=== PATIENT | female | born 1995 | race Caucasian/White ===

== ENCOUNTER 2018-04-04 20:55 | Observation (INO) ==
[2018-04-04] MEDS ORDERED: Ibuprofen 800 MG TABLET PO ONE (21:15)
[2018-04-04 21:29] LABS: Bilirubin,Urine Negative (Negative); Blood,Urine Small (Negative); Glucose,Urine (UA) Normal (Normal); Ketones,Urine Negative (Negative); Leukocyte Esterase,Urine Large (Negative); Nitrite,Urine Positive (Negative); Protein,Urine 30 mg/dL (Neg-Trace); Specific Gravity,Urine 1.022 (1.010-1.025); Urobilinogen,Urine >=8.0 mg/dL (Normal)
[2018-04-04 21:32] LABS: Bacteria,Urine Many per hpf (None-Few); Hyaline Casts,Urine Few per lpf (None-Few); Squamous Epithelial Cell,Urine Many per lpf (None-Few); WBC,Urine TNTC per hpf (0-3)
[2018-04-04 21:34] LABS: Clarity,Urine Hazy (Clear); Color,Urine Yellow (Yellow)
--- NOTE | 2018-04-04 22:55 | Emergency Department Note ---
Disposition Clinical Impression: Pyelonephritis Disposition: Admitted As Inpatient Referrals: NONE,PCP [Primary Care Provider] - Forms: ED Satisfaction Letter Time of Disposition: 01:39 Female Urogenital HPI - General Chief complaint: ED Urogenital-Female Stated complaint: possible kidney stone Time Seen by Provider: 04/04/18 22:54 Source: patient Mode of arrival: ambulatory Limitations: no limitations Nursing Notes Reviewed: Yes Vital Signs Reviewed: Yes - History of Present Illness HPI Narrative: Patient is a 22-year-old female with no past medical history. She presents today due to left-sided flank pain, dysuria, hematuria for the past 5-6 days. She also admits to nausea, subjective fevers. Denies any vomiting, diarrhea, vaginal discharge or bleeding. Denies any history of kidney stones. - Related Data Previous Rx's Medication Instructions Recorded Azithromycin [Zithromax Tri-Art] 2,000 mg PO ONCE #4 tablet 12/03/17 Allergies Allergy/AdvReac Type Severity Reaction Status Date / Time No Known Allergies Allergy Verified 03/18/18 20:04 All systems ED: reviewed and negative except as stated. Constitutional: Reports: fever Cardiovascular: Denies: chest pain, palpitations Respiratory: Denies: cough, dyspnea Gastrointestinal: Reports: abdominal pain, nausea. Denies: vomiting, diarrhea, constipation Genitourinary: Reports: dysuria, frequency, hematuria. Denies: urgency, discharge, abnormal menses Musculoskeletal: Reports: back pain Neurological: Denies: headache, weakness, numbness, paresthesias Past Medical History - Past Medical History Attestation: Yes The following information was validated with the patient. Source: patient Medical history: Reports: no medical history Surgical history: Reports: non-contributory Psychiatric history: Reports: no psych history - Social History Smoking Status: Current every day smoker Smokeless Tobacco Status: No Alcohol use: Reports: none Drug use: Reports: none Physical Exam - General Limitations: no limitations General appearance: alert, in no apparent distress - Head Head exam: atraumatic, normocephalic, normal inspection - Eye Eye exam: Present: normal appearance, PERRL, EOMI - ENT ENT exam: normal exam, normal oropharynx, mucous membranes moist - Neck Neck exam: Present: normal inspection, full ROM, trachea midline - Chest Chest inspection: Present: normal inspection, symmetric chest wall rise - Respiratory Respiratory exam: Present: normal lung sounds bilaterally - Cardiovascular Cardiovascular exam: Present: regular rate, normal rhythm, normal heart sounds - Abdominal Exam Abdominal exam: Present: soft, tenderness (Left flank pain). Absent: distention , guarding, rebound, rigidity - Extremities Exam Extremities exam: Present: normal inspection, full ROM. Absent: tenderness, pedal edema - Neurological Exam Neurological exam: Present: alert, oriented X3 - Psychiatric Psychiatric exam: Present: normal affect, normal mood - Skin Skin exam: Present: warm, dry, intact, normal color Course Course Narrative: Patient was tachycardic and febrile. Patient had left flank pain on exam. Urinalysis shows signs of UTI. CT scan was performed to assess for any stone. Negative for stone but does show left sided pyelonephritis. Started the patient on Rocephin. Ordered cultures of urine and blood. Fluids given and tylenol/motrin for fever. Concern for sepsis at this time. Patient was accepted for admission by Dr. Fregoso. Vital Signs Temperature 103.1 F H 04/04/18 21:03 Pulse Rate 126 04/04/18 21:03 Respiratory Rate 16 04/04/18 21:03 Blood Pressure 121/72 04/04/18 21:03 O2 Sat by Pulse Oximetry 97 04/04/18 21:03 Temperature 103.1 F H 04/04/18 21:03 Pulse Rate 92 04/05/18 00:55 Respiratory Rate 18 04/05/18 00:55 Blood Pressure 100/73 04/05/18 00:55 O2 Sat by Pulse Oximetry 97 04/05/18 00:55 Oxygen Delivery Oxygen Delivery Room Air Urogenital-Female - MDM Narrative Medical decision making narrative: Patient was tachycardic and febrile. Patient had left flank pain on exam. Urinalysis shows signs of UTI. CT scan was performed to assess for any stone. Negative for stone but does show left sided pyelonephritis. Started the patient on Rocephin. Ordered cultures of urine and blood. Fluids given and tylenol/motrin for fever. Concern for sepsis at this time. Patient was accepted for admission by Dr. Fregoso. - Medical Records Medical records reviewed: Yes I reviewed the patient's medical records. - Lab Data Lab results reviewed: Yes I reviewed the patient's lab results. Result diagrams: 04/04/18 23:33 04/04/18 23:33 Lab Results 04/04/18 04/04/18 04/04/18 Range/Units 21:17 21:17 23:33 WBC 11.5 H (4.3-11.1) K/mcL RBC 4.21 (3.82-4.97) M/mcL Hgb 12.2 (11.5-15.4) g/dL Hct 36.0 (35.3-44.9) % MCV 85.5 (83.0-100.0) fL MCH 29.0 (28.0-33.3) pg MCHC 33.9 (31.6-35.5) g/dL RDW 12.4 (11.5-14.5) % Plt Count 263 (140-400) K/mcL MPV 8.9 L (9.4-12.4) fL Immature Gran % 0.4 (0-4) % Seg Neutrophils % 77.0 % Lymphocytes % 12.0 % Monocytes % 9.9 % Eosinophils % 0.5 % Basophils % 0.2 % Neutrophils # 8.9 (1.6-8.9) K/mcL Lymphocytes # 1.4 (0.6-4.6) K/mcL Monocytes # 1.1 (0.0-1.3) K/mcL Eosinophils # 0.1 (0.0-0.6) K/mcL Basophils # 0.0 (0.0-0.2) K/mcL Sodium (136-145) mEq/L Potassium (3.5-5.1) mEq/L Chloride (98-107) mEq/L Carbon Dioxide (23-29) mEq/L BUN (6-20) mg/dL Creatinine (0.60-1.20) mg/dL Est GFR ( Amer) (> 60) Est GFR (Non-Af Amer) (> 60) BUN/Creatinine Ratio (6-26) Glucose (70-105) mg/dL Calculated Osmolality (280-300) Calcium (8.6-10.3) mg/dL Urine Color Yellow (Yellow) Urine Clarity Hazy A (Clear) Urine pH 7.0 (5.0-8.0) pH Units Ur Specific [place] 1.022 (1.010-1.025) Urine Protein 30 H (Neg-Trace) mg/dL Urine Glucose (UA) Normal (Normal) mg/dL Urine Ketones Negative (Negative) mg/dL Urine Blood Small H (Negative) Urine Nitrite Positive A (Negative) Urine Bilirubin Negative (Negative) Urine Urobilinogen >=8.0 H (Normal) mg/dL Ur Leukocyte Esterase Large H (Negative) Urine Microscopic RBC 5-15 H (0-3) per hpf Urine Microscopic WBC TNTC H (0-3) per hpf Ur Squamous Epith Cells Many H (None-Few) per lpf Urine Bacteria Many H (None-Few) per hpf Hyaline Casts Few (None-Few) per lpf Ur Culture Indicated? NO. A (NO) Urine Test Negative (Negative) 04/04/18 Range/Units 23:33 WBC (4.3-11.1) K/mcL RBC (3.82-4.97) M/mcL Hgb (11.5-15.4) g/dL Hct (35.3-44.9) % MCV (83.0-100.0) fL MCH (28.0-33.3) pg MCHC (31.6-35.5) g/dL RDW (11.5-14.5) % Plt Count (140-400) K/mcL MPV (9.4-12.4) fL Immature Gran % (0-4) % Seg Neutrophils % % Lymphocytes % % Monocytes % % Eosinophils % % Basophils % % Neutrophils # (1.6-8.9) K/mcL Lymphocytes # (0.6-4.6) K/mcL Monocytes # (0.0-1.3) K/mcL Eosinophils # (0.0-0.6) K/mcL Basophils # (0.0-0.2) K/mcL Sodium 133 L (136-145) mEq/L Potassium 3.5 (3.5-5.1) mEq/L Chloride 102 (98-107) mEq/L Carbon Dioxide 22 L (23-29) mEq/L BUN 10 (6-20) mg/dL Creatinine 0.76 (0.60-1.20) mg/dL Est GFR ( Amer) > 60 (> 60) Est GFR (Non-Af Amer) > 60 (> 60) BUN/Creatinine Ratio 13 (6-26) Glucose 118 H (70-105) mg/dL Calculated Osmolality 276 L (280-300) Calcium 9.1 (8.6-10.3) mg/dL Urine Color (Yellow) Urine Clarity (Clear) Urine pH (5.0-8.0) pH Units Ur Specific [place] (1.010-1.025) Urine Protein (Neg-Trace) mg/dL Urine Glucose (UA) (Normal) mg/dL Urine Ketones (Negative) mg/dL Urine Blood (Negative) Urine Nitrite (Negative) Urine Bilirubin (Negative) Urine Urobilinogen (Normal) mg/dL Ur Leukocyte Esterase (Negative) Urine Microscopic RBC (0-3) per hpf Urine Microscopic WBC (0-3) per hpf Ur Squamous Epith Cells (None-Few) per lpf Urine Bacteria (None-Few) per hpf Hyaline Casts (None-Few) per lpf Ur Culture Indicated? (NO) Urine Test (Negative) - Radiology Data Radiology results reviewed: Yes I reviewed the patient's radiology results. Abdomen/Pelvis CT 04/04/18 23:10 IMPRESSION: 1. No evidence of obstructive uropathy. Evaluation for pyelonephritis is limited by the lack of intravenous contrast. Mild infiltration of the perinephric fat particularly lateral to the left kidney. Infiltration of the pericystic fat. The findings are concerning for UTI and left-sided pyelonephritis. 2. No other acute findings within the abdomen or pelvis. The appendix is unremarkable. 3. Free fluid in the pelvis, likely physiologic. D/ / Milton Iverson MD / Milton Iverson MD Interpreting Provider: Milton Iverson MD S.B.A.R. - S.B.A.R. Situation: Demographics, MOA Background: Presenting Complaint, Relevant PMH, Meds, & Allergies Assessment: Vital Signs, Course and respsone to treatment, Exam Concerns, Patient/Family Expectation, Pertinant Lab Results, Outstanding Labs Recommendation: Barrier(s) to disposition, Recommendation based on pending studies, treatments, or consults S.B.A.R. Report Given to: Dr. Fregoso
[2018-04-04] MEDS ORDERED: cefTRIAXone 2,000 MG in Water for inj. (sterile) 20 ML 20 ML IVP ONE (23:10)
[2018-04-04] MEDS ORDERED: 0.9 % Sodium Chloride 1,000 ML IVC ONE (23:25)
[2018-04-04 23:43] LABS: Basophils % 0.2 %; Eosinophils # 0.1 K/mcL (0.0-0.6); Eosinophils % 0.5 %; Hemoglobin 12.2 g/dL (11.5-15.4); Immature Granulocytes % 0.4 % (0-4); Lymphocytes # 1.4 K/mcL (0.6-4.6); Mean Corpuscular HGB Conc 33.9 g/dL (31.6-35.5); Mean Corpuscular Volume 85.5 fL (83.0-100.0); Mean Platelet Volume 8.9 fL (9.4-12.4); Monocytes # 1.1 K/mcL (0.0-1.3); Monocytes % 9.9 %; Neutrophils # 8.9 K/mcL (1.6-8.9); Platelet Count 263 K/mcL (140-400); Red Blood Count 4.21 M/mcL (3.82-4.97); Red Cell Distribution Width 12.4 % (11.5-14.5)
[2018-04-05 00:02] LABS: BUN/Creatinine Ratio 13 (6-26); Blood Urea Nitrogen 10 mg/dL (6-20); Calcium 9.1 mg/dL (8.6-10.3); Carbon Dioxide 22 mEq/L (23-29); Chloride 102 mEq/L (98-107); Glucose 118 mg/dL (70-105); Osmolality,Calculated 276 (280-300); Potassium 3.5 mEq/L (3.5-5.1); Sodium 133 mEq/L (136-145); eGFR For African Americans > 60 (> 60); eGFR For Non-African Americans > 60 (> 60)
--- NOTE | 2018-04-05 00:20 | Emergency Department Note ---
Disposition Clinical Impression: Pyelonephritis Disposition: Admitted As Inpatient Referrals: NONE,PCP [Primary Care Provider] - Forms: ED Satisfaction Letter General Adult HPI - General Chief complaint: ED Urogenital-Female Stated complaint: possible kidney stone Time Seen by Provider: 04/04/18 22:54 Source: patient Mode of arrival: ambulatory Limitations: no limitations - History of Present Illness Pain Scale: 8 - Related Data Previous Rx's Medication Instructions Recorded Azithromycin [Zithromax Tri-Art] 2,000 mg PO ONCE #4 tablet 12/03/17 Allergies Allergy/AdvReac Type Severity Reaction Status Date / Time No Known Allergies Allergy Verified 03/18/18 20:04 Past Medical History - Past Medical History Medical history: Reports: no medical history Surgical history: Reports: non-contributory Psychiatric history: Reports: no psych history - Social History Smoking Status: Current every day smoker Smokeless Tobacco Status: No Alcohol use: Reports: none Drug use: Reports: none Physical Exam - General Limitations: no limitations General appearance: alert, in no apparent distress Course - Reevaluation(s) Reevaluation #1: Attestation note I examined this patient and my medical decision-making was reviewed with the emergency medicine resident. I agree with the documented findings, disposition and treatment plan as described except to the extent set forth below. Patient seen with emergency medicine resident Dr. Jitendra Pino, Please see a copy of his note for details of the H&P, ED evaluation, management and disposition. I have independently evaluated the patient and confirmed appropriate portions of the history and physical exam. Briefly: 22-year-old female with dysuria fever flank pain urinalysis shows too numerous to count WBC she developed 103+ got Tylenol IV antibiotics IV fluid abdominal pelvic CT shows no kidney stone but suggestive for pyelonephritis. Patient will be admitted. Admission disposition pending. Time: 00:19 Vital Signs Temperature 103.1 F H 04/04/18 21:03 Pulse Rate 126 04/04/18 21:03 Respiratory Rate 16 04/04/18 21:03 Blood Pressure 121/72 04/04/18 21:03 O2 Sat by Pulse Oximetry 97 04/04/18 21:03 Temperature 103.1 F H 04/04/18 21:03 Pulse Rate 126 04/04/18 21:03 Respiratory Rate 16 04/04/18 21:03 Blood Pressure 121/72 04/04/18 21:03 O2 Sat by Pulse Oximetry 97 04/04/18 21:03 Oxygen Delivery Oxygen Delivery Room Air Medical Decision Making - Lab Data Result diagrams: 04/04/18 23:33 04/04/18 23:33 Lab Results 04/04/18 04/04/18 04/04/18 Range/Units 21:17 21:17 23:33 WBC 11.5 H (4.3-11.1) K/mcL RBC 4.21 (3.82-4.97) M/mcL Hgb 12.2 (11.5-15.4) g/dL Hct 36.0 (35.3-44.9) % MCV 85.5 (83.0-100.0) fL MCH 29.0 (28.0-33.3) pg MCHC 33.9 (31.6-35.5) g/dL RDW 12.4 (11.5-14.5) % Plt Count 263 (140-400) K/mcL MPV 8.9 L (9.4-12.4) fL Immature Gran % 0.4 (0-4) % Seg Neutrophils % 77.0 % Lymphocytes % 12.0 % Monocytes % 9.9 % Eosinophils % 0.5 % Basophils % 0.2 % Neutrophils # 8.9 (1.6-8.9) K/mcL Lymphocytes # 1.4 (0.6-4.6) K/mcL Monocytes # 1.1 (0.0-1.3) K/mcL Eosinophils # 0.1 (0.0-0.6) K/mcL Basophils # 0.0 (0.0-0.2) K/mcL Sodium (136-145) mEq/L Potassium (3.5-5.1) mEq/L Chloride (98-107) mEq/L Carbon Dioxide (23-29) mEq/L BUN (6-20) mg/dL Creatinine (0.60-1.20) mg/dL Est GFR ( Amer) (> 60) Est GFR (Non-Af Amer) (> 60) BUN/Creatinine Ratio (6-26) Glucose (70-105) mg/dL Calculated Osmolality (280-300) Calcium (8.6-10.3) mg/dL Urine Color Yellow (Yellow) Urine Clarity Hazy A (Clear) Urine pH 7.0 (5.0-8.0) pH Units Ur Specific [place] 1.022 (1.010-1.025) Urine Protein 30 H (Neg-Trace) mg/dL Urine Glucose (UA) Normal (Normal) mg/dL Urine Ketones Negative (Negative) mg/dL Urine Blood Small H (Negative) Urine Nitrite Positive A (Negative) Urine Bilirubin Negative (Negative) Urine Urobilinogen >=8.0 H (Normal) mg/dL Ur Leukocyte Esterase Large H (Negative) Urine Microscopic RBC 5-15 H (0-3) per hpf Urine Microscopic WBC TNTC H (0-3) per hpf Ur Squamous Epith Cells Many H (None-Few) per lpf Urine Bacteria Many H (None-Few) per hpf Hyaline Casts Few (None-Few) per lpf Ur Culture Indicated? NO. A (NO) Urine Test Negative (Negative) 04/04/18 Range/Units 23:33 WBC (4.3-11.1) K/mcL RBC (3.82-4.97) M/mcL Hgb (11.5-15.4) g/dL Hct (35.3-44.9) % MCV (83.0-100.0) fL MCH (28.0-33.3) pg MCHC (31.6-35.5) g/dL RDW (11.5-14.5) % Plt Count (140-400) K/mcL MPV (9.4-12.4) fL Immature Gran % (0-4) % Seg Neutrophils % % Lymphocytes % % Monocytes % % Eosinophils % % Basophils % % Neutrophils # (1.6-8.9) K/mcL Lymphocytes # (0.6-4.6) K/mcL Monocytes # (0.0-1.3) K/mcL Eosinophils # (0.0-0.6) K/mcL Basophils # (0.0-0.2) K/mcL Sodium 133 L (136-145) mEq/L Potassium 3.5 (3.5-5.1) mEq/L Chloride 102 (98-107) mEq/L Carbon Dioxide 22 L (23-29) mEq/L BUN 10 (6-20) mg/dL Creatinine 0.76 (0.60-1.20) mg/dL Est GFR ( Amer) > 60 (> 60) Est GFR (Non-Af Amer) > 60 (> 60) BUN/Creatinine Ratio 13 (6-26) Glucose 118 H (70-105) mg/dL Calculated Osmolality 276 L (280-300) Calcium 9.1 (8.6-10.3) mg/dL Urine Color (Yellow) Urine Clarity (Clear) Urine pH (5.0-8.0) pH Units Ur Specific [place] (1.010-1.025) Urine Protein (Neg-Trace) mg/dL Urine Glucose (UA) (Normal) mg/dL Urine Ketones (Negative) mg/dL Urine Blood (Negative) Urine Nitrite (Negative) Urine Bilirubin (Negative) Urine Urobilinogen (Normal) mg/dL Ur Leukocyte Esterase (Negative) Urine Microscopic RBC (0-3) per hpf Urine Microscopic WBC (0-3) per hpf Ur Squamous Epith Cells (None-Few) per lpf Urine Bacteria (None-Few) per hpf Hyaline Casts (None-Few) per lpf Ur Culture Indicated? (NO) Urine Test (Negative)
[2018-04-05] MEDS ORDERED: Naloxone 0.4 MG/ML INJ IVP PRN (01:12)
[2018-04-05] MEDS ORDERED: 0.9 % Sodium Chloride 1,000 ML IVC SCH (01:15)
[2018-04-05 01:38] LABS: Basophils % 0.2 %; Eosinophils # 0.1 K/mcL (0.0-0.6); Eosinophils % 0.5 %; Hematocrit 37.3 % (35.3-44.9); Hemoglobin 12.6 g/dL (11.5-15.4); Immature Granulocytes % 0.5 % (0-4); Lymphocytes # 1.3 K/mcL (0.6-4.6); Lymphocytes % 12.4 %; Mean Corpuscular HGB Conc 33.8 g/dL (31.6-35.5); Mean Corpuscular Hemoglobin 29.8 pg (28.0-33.3); Mean Corpuscular Volume 88.2 fL (83.0-100.0); Mean Platelet Volume 8.8 fL (9.4-12.4); Monocytes # 0.9 K/mcL (0.0-1.3); Monocytes % 8.8 %; Neutrophils # 8.3 K/mcL (1.6-8.9); Platelet Count 242 K/mcL (140-400); Red Blood Count 4.23 M/mcL (3.82-4.97); Red Cell Distribution Width 12.3 % (11.5-14.5); Segmented Neutrophils % 77.6 %
[2018-04-05 01:55] LABS: BUN/Creatinine Ratio 13 (6-26); Blood Urea Nitrogen 10 mg/dL (6-20); Calcium 8.4 mg/dL (8.6-10.3); Carbon Dioxide 22 mEq/L (23-29); Chloride 104 mEq/L (98-107); Glucose 121 mg/dL (70-105); Osmolality,Calculated 280 (280-300); Potassium 3.3 mEq/L (3.5-5.1); Sodium 135 mEq/L (136-145); eGFR For African Americans > 60 (> 60); eGFR For Non-African Americans > 60 (> 60)
--- NOTE | 2018-04-05 02:39 | Internal Med History&Physical ---
Date of Encounter: 04/05/18 Time of Encounter: 02:36 Internal Medicine - H&P: HPI Chief complaint: Hematuria, dysuria. Admitted From: Home Plans for Post Hospital Care: Home History of present illness: Ms. Miramontes is a 22 year old female with no significant medical history presented with 5 days history of dysuria, suprapubic pain, blood in the urine. She reports being in her usual state of health till March 31 when she developed antonio red blood in her urine, associated with pressure-like sensation in the suprapubic region and dysuria. She reports associated fever or chills in the past 24 hours prior to presentation. She also reports left flank pain which also subsided prior to presentation. She had stayed at home and been drinking cranberry juice for her symptoms. She denies nausea or vomiting, she reports poor appetite, she denies diarrhea, or change in bowel habits. No vaginal discharge or bleeding per vagina. She denies chest or respiratory symptoms. She denies illicit drug use. She smokes half a pack of cigarettes daily In the ER, she was febrile with temperature 103, tachycardia with heart rate 126 , urinalysis showed multiple squamous cells as well as leukocyte esterase and blood as well as nitrites, abdomen and pelvis CAT scan shows left-sided pyelonephritis The patient will be admitted inpatient for management of sepsis secondary to pyelonephritis, she will require at least 2 midnights Patient is full code Past Med Surg Social Fam HX - Past Medical History Medical history: no medical history Psychiatric history: no psych history - Past Surgical History Surgical History: non-contributory Additional surgical history: tonsils and adnoids - Social History Smoking Status: Current every day smoker Smokeless Tobacco Status: No Alcohol use: none Drug use: none - Family History Mother Family Member Ethnicity: Non- Living Status: Still Living Hx Family Cancer: Yes (cervical cancer) Internal Medicine - H&P: Meds No Known Home Drugs 04/05/18 [History] 3 Allergy/AdvReac Type Severity Reaction Status Date / Time No Known Allergies Allergy Verified 03/18/18 20:04 All Systems PM: A 10-system review of systems was performed and is negative for pertinent findings except as documented above in the HPI. - Constitutional Constitutional: anorexia, chills, fever(s) - EENT Eyes: no change in vision, no discharge, no pain, no photophobia Ears: no ear discharge, no ear pain, no tinnitus Nose, mouth and throat: no dysphagia, no nasal discharge, no neck pain, no sore throat - Cardiovascular Cardiovascular ROS IM: no chest pain, no diaphoresis, no dyspnea, no lightheadedness, no palpitations, no syncope - Respiratory Respiratory: no cough, no dyspnea, no wheezing, no excessive phlegm production - Gastrointestinal Gastrointestinal: no abdominal pain, no diarrhea, no hematemesis, no hematochezia, no melena, no nausea, no vomiting - Genitourinary Genitourinary: as per HPI - Musculoskeletal Musculoskeletal ROS IM: as per HPI - Integumentary Integumentary IM: as per HPI - Neurological Neurological ROS: as per HPI - Hematologic/Lymphatic Hematologic/Lymphatic: no easy bruising - Constitutional Vitals: Temp Pulse Resp BP Pulse Ox 97.6 F 71 16 96/60 98 04/05/18 02:25 04/05/18 02:25 04/05/18 02:25 04/05/18 02:25 04/05/18 02:25 General appearance: Present: A&O X 3, pleasant, no acute distress - Head Head exam: Present: atraumatic, normocephalic - Eye Eye exam: Present: PERRL, conjuntiva pink, sclera anicteric Pupils: Present: PERRL - Neck Neck exam general surgery: Present: supple, trachea midline. Absent: lymphadenopathy - Respiratory Respiratory exam: Present: CTAB. Absent: accessory muscle use, rales, rhonchi, wheezes - Cardiovascular Cardiovascular exam: Present: RRR, +S1, +S2. Absent: diastolic murmur, gallop, rubs, systolic murmur - GI/Abdominal GI/Abdominal exam: Present: tenderness (Suprapubic tenderness) - Extremities Exam Extremities exam: Present: warm, radial pulses palpable and symmetrical. Absent : calf tenderness, cyanotic, pedal edema - Back Exam Back exam: Present: CVA tenderness (L). Absent: CVA tenderness (R) - Neurological Exam Neurological exam: Present: alert, CN II-XII intact, oriented X3, no focal deficits. Absent: pronater drift, facial droop, speech deficit - Skin Skin exam: Present: dry, intact Internal Med - H&P Results - Labs CBC & Chem 7: 04/05/18 01:23 04/05/18 01:23 - Assessment and plan (1) Sepsis Current Visit: Yes Status: Acute Assessment and plan: Patient may sepsis criteria with fever 103, tachycardia 126, source of sepsis is urinary tract infection and pyelonephritis. Lactate is within normal limit Pressure is acceptable Continue IV fluid hydration Urine and blood culture has been ordered Continue ceftriaxone 2 g daily Tylenol when necessary for fever Pain control Qualifiers: Sepsis type: sepsis due to unspecified organism Qualified Code(s): A41.9 - Sepsis, unspecified organism (2) Pyelonephritis Current Visit: Yes Status: Acute Assessment and plan: Management as in sepsis - Time Spent With Patient Total time spent is greater than 50% in coordination of care (as documented) at patient's floor/unit and/or counseling patient:
[2018-04-05] MEDS: traMADol 50 MG TABLET PO PRN ×2 (12:06→20:36)
[2018-04-05] MEDS: Acetaminophen 325 MG TABLET PO PRN ×2 (12:06→20:49)
--- NOTE | 2018-04-05 12:49 | Event Note ---
Date of Encounter: 04/05/18 Time of Encounter: 12:48 Patient seen and examined at the bedside today. She has been admitted for acute pyelonephritis clinical. She continues to have fevers and chills. She is on IV Rocephin and cultures are pending. I will continue IV fluids for today and monitor closely. Rest of the assessment and plan is the same as in H &P
[2018-04-05] MEDS: 0.9 % Sodium Chloride 1,000 ML IVC SCH ×2 (15:31→23:50)
[2018-04-05] MEDS ORDERED: cefTRIAXone 2,000 MG in Water for inj. (sterile) 20 ML 20 ML IVP SCH (18:00)
[2018-04-06] MEDS: *HR* Enoxaparin 40 MG/0.4 ML SYRINGE SQ SCH (05:23)
[2018-04-06 07:58] LABS: Basophils % 0.2 %; Eosinophils # 0.2 K/mcL (0.0-0.6); Eosinophils % 1.3 %; Hematocrit 34.6 % (35.3-44.9); Hemoglobin 11.6 g/dL (11.5-15.4); Immature Granulocytes % 0.5 % (0-4); Lymphocytes # 1.3 K/mcL (0.6-4.6); Lymphocytes % 10.6 %; Mean Corpuscular HGB Conc 33.5 g/dL (31.6-35.5); Mean Corpuscular Hemoglobin 29.7 pg (28.0-33.3); Mean Corpuscular Volume 88.7 fL (83.0-100.0); Mean Platelet Volume 8.8 fL (9.4-12.4); Monocytes # 0.9 K/mcL (0.0-1.3); Monocytes % 7.1 %; Neutrophils # 9.8 K/mcL (1.6-8.9); Platelet Count 260 K/mcL (140-400); Red Cell Distribution Width 12.7 % (11.5-14.5); Segmented Neutrophils % 80.3 %
[2018-04-06] MEDS: 0.9 % Sodium Chloride 1,000 ML IVC SCH ×2 (08:22→19:08)
[2018-04-06 08:44] LABS: Alanine Aminotransferase 66 Units/L (7-52); Albumin/Globulin Ratio 1.1 (1.1-2.2); Alkaline Phosphatase 102 Units/L (34-104); Aspartate Amino Transferase 32 Units/L (13-39); BUN/Creatinine Ratio 6 (6-26); Bilirubin,Total 0.6 mg/dL (0.3-1.0); Blood Urea Nitrogen 3 mg/dL (6-20); Calcium 8.3 mg/dL (8.6-10.3); Carbon Dioxide 25 mEq/L (23-29); Chloride 104 mEq/L (98-107); Globulin 2.8 g/dL (2.4-3.5); Glucose 101 mg/dL (70-105); Osmolality,Calculated 277 (280-300); Potassium 3.8 mEq/L (3.5-5.1); Sodium 135 mEq/L (136-145); Total Protein 5.8 g/dL (6.4-8.9); eGFR For African Americans > 60 (> 60); eGFR For Non-African Americans > 60 (> 60)
[2018-04-06] MEDS: Acetaminophen 325 MG TABLET PO PRN ×2 (08:52→17:36)
[2018-04-06] MEDS: Ondansetron 4 MG/2 ML VIAL IVP PRN ×2 (10:18→18:20)
[2018-04-06] MEDS: Piperacillin/Tazobactam 3.375 GM in 0.9 % Sodium Chloride Mini Bag 100 ML IVPB SCH ×2 (10:18→17:07)
--- NOTE | 2018-04-06 11:14 | Internal Med Progress Note ---
Date of Encounter: 04/06/18 Time of Encounter: 11:12 - Assessment and plan (1) Pyelonephritis Current Visit: Yes Status: Acute Assessment and plan: Patient has a slightly increased white count from yesterday despite getting fluid resuscitation. I will continue IV hydration for now and switch antibiotics from Rocephin to Zosyn. Patient is growing gram-negative rods in the urine culture at this point however speciation is not back. Her blood cultures are also pending at this point. Vital signs remain stable except for fever which is more or less expected. Continue antibiotics and monitor closely. Continue IV fluids as well (2) Sepsis Current Visit: Yes Status: Acute Assessment and plan: Patient may sepsis criteria with fever 103, tachycardia 126, source of sepsis is urinary tract infection and pyelonephritis. Lactate is within normal limit Pressure is acceptable Continue IV fluid hydration Urine and blood culture has been ordered Continue ceftriaxone 2 g daily Tylenol when necessary for fever Pain control 04/06-see plan above Qualifiers: Sepsis type: sepsis due to unspecified organism Qualified Code(s): A41.9 - Sepsis, unspecified organism - Time Spent With Patient Total time spent is greater than 50% in coordination of care (as documented) at patient's floor/unit and/or counseling patient: Greater than 35 minutes (The discussed in detail with the patient, family at the bedside, nursing staff in detail.) - Subjective Interval history: Patient continues to have fevers and also complains of off and on abdominal pain. She also has nausea and has thrown up at least once since this morning. - Constitutional Vitals: Temp Pulse Resp BP Pulse Ox 98.5 F 79 16 91/56 99 04/06/18 10:57 04/06/18 10:57 04/06/18 10:57 04/06/18 10:57 04/06/18 10:57 General appearance: Present: A&O X 3, pleasant, no acute distress Exam: GENERAL: Alert, moderate distress, cooperative EYES: PERRLA, EOMI EARS: External ears normal, canals clear OROPHARYNX: Lips, mucosa, and tongue normal. Teeth and gums normal. Oropharynx normal. NECK: No jugulovenous distention, No carotid bruits, Carotid pulse normal contour, Supple LUNGS: Lungs clear to auscultation, Good diaphragmatic excursion CARDIAC: Tachycardic; no rubs, murmurs, or gallops ABDOMEN: Abdomen soft, non-tender, BS normal, No masses or organomegaly PULSES: 2+ radial, 2+ carotid Rest of the exam is non contributory Internal Medicine: Result - Labs CBC & Chem 7: 04/06/18 07:13 04/06/18 07:13 Labs: Short CBC 04/06/18 Range/Units 07:13 WBC 12.2 H (4.3-11.1) K/mcL Hgb 11.6 (11.5-15.4) g/dL Hct 34.6 L (35.3-44.9) % Plt Count 260 (140-400) K/mcL Neutrophils # 9.8 H (1.6-8.9) K/mcL BMP 04/06/18 07:13 Sodium 135 L Potassium 3.8 Chloride 104 Carbon Dioxide 25 BUN 3 L Creatinine 0.54 L Glucose 101 Calcium 8.3 L Liver Function 04/06/18 Range/Units 07:13 Total Bilirubin 0.6 (0.3-1.0) mg/dL AST 32 (13-39) Units/L ALT 66 H (7-52) Units/L Alkaline Phosphatase 102 (34-104) Units/L Albumin 3.0 L (3.5-5.7) g/dL Consult Discharge Plan - Plan Referrals: NONE,PCP [Primary Care Provider] -
[2018-04-07] MEDS: Piperacillin/Tazobactam 3.375 GM in 0.9 % Sodium Chloride Mini Bag 100 ML IVPB SCH ×2 (03:16→10:54)
[2018-04-07] MEDS: 0.9 % Sodium Chloride 1,000 ML IVC SCH ×3 (03:17→11:05)
[2018-04-07] MEDS: *HR* Enoxaparin 40 MG/0.4 ML SYRINGE SQ SCH (05:49)
[2018-04-07 09:26] LABS: Basophils % 0.5 %; Eosinophils # 0.2 K/mcL (0.0-0.6); Eosinophils % 2.8 %; Hematocrit 34.1 % (35.3-44.9); Hemoglobin 11.4 g/dL (11.5-15.4); Immature Granulocytes % 0.4 % (0-4); Lymphocytes # 1.5 K/mcL (0.6-4.6); Lymphocytes % 18.8 %; Mean Corpuscular HGB Conc 33.4 g/dL (31.6-35.5); Mean Corpuscular Hemoglobin 29.6 pg (28.0-33.3); Mean Corpuscular Volume 88.6 fL (83.0-100.0); Mean Platelet Volume 8.8 fL (9.4-12.4); Monocytes # 0.5 K/mcL (0.0-1.3); Monocytes % 6.1 %; Neutrophils # 5.7 K/mcL (1.6-8.9); Platelet Count 248 K/mcL (140-400); Red Blood Count 3.85 M/mcL (3.82-4.97); Red Cell Distribution Width 12.6 % (11.5-14.5); Segmented Neutrophils % 71.4 %
[2018-04-07 09:43] LABS: Alanine Aminotransferase 45 Units/L (7-52); Albumin 2.8 g/dL (3.5-5.7); Alkaline Phosphatase 95 Units/L (34-104); Aspartate Amino Transferase 17 Units/L (13-39); BUN/Creatinine Ratio 6 (6-26); Bilirubin,Total 0.5 mg/dL (0.3-1.0); Blood Urea Nitrogen 4 mg/dL (6-20); Calcium 8.3 mg/dL (8.6-10.3); Carbon Dioxide 25 mEq/L (23-29); Chloride 108 mEq/L (98-107); Globulin 2.7 g/dL (2.4-3.5); Glucose 116 mg/dL (70-105); Osmolality,Calculated 284 (280-300); Potassium 3.7 mEq/L (3.5-5.1); Sodium 138 mEq/L (136-145); Total Protein 5.5 g/dL (6.4-8.9); eGFR For African Americans > 60 (> 60); eGFR For Non-African Americans > 60 (> 60)
[2018-04-07 14:13] VITALS: BP 100/63
--- NOTE | 2018-04-07 15:18 | Discharge Summary ---
<Logan hCapman Yhoana - Last Filed: 04/07/18 18:35> - NOTES TO OUTPATIENT PROVIDER Notes to Outpatient Provider: Patient was admitted to [facility] on 04/05 for Sepsis secondary to Pyelonephritis and UTI. She was treated IVF as well as with Rocephin then switched to Zosyn. Her labs, symptoms, and clinical disposition improved significantly and quickly and was considered stable for discharge with 10 days of oral Omnicef on 04/07. Date of Encounter: 04/07/18 Time of Encounter: 15:14 - Discharge Diagnosis (1) Pyelonephritis Priority: Primary Status: Acute Assessment and Plan: Patient was admitted 04/05 for sepsis secondary to pyelonephritis and UTI. She was started on IVF and IV Rocephin. Urine culture grew gram negative rods. Blood cultures pending. Her white count went down then up again so she was switched to IV Zosyn on 04/06. Labs and vitals were monitored. On 04/07 her labs, vitals, symptoms, and clinical disposition were stable for discharge on 10 days oral Omnicef. (2) Sepsis Priority: Secondary Status: Acute Assessment and Plan: Patient was admitted 04/05 for sepsis secondary to pyelonephritis and UTI. She was started on IVF and IV Rocephin. Urine culture grew gram negative rods. Blood cultures pending. Her white count went down then up again so she was switched to IV Zosyn on 04/06. Labs and vitals were monitored. On 04/07 her labs, vitals, symptoms, and clinical disposition were stable for discharge on 10 days oral Omnicef. Qualifiers: Sepsis type: Escherichia coli Qualified Code(s): A41.51 - Sepsis due to Escherichia coli [E. coli] Hospital course: Ms. Miramontes is a 22 year old female with no significant past medical history was admitted to [facility] on 04/05 for Sepsis secondary to Pyelonephritis and UTI. She was treated with IVF as well as with Rocephin then switched to Zosyn. Her labs, symptoms, and clinical disposition improved significantly and quickly and she was considered stable for discharge with 10 days of oral Omnicef on 04/07. - Time Spent with Patient Total time spent providing and/or coordinating discharge services: - Discharge Medications Prescriptions: Cefdinir [Omnicef] 300 mg PO BID #20 capsule Home Medications: Cefdinir [Omnicef] 300 mg PO BID #20 capsule 04/07/18 [Rx] Allergies/Adverse Reactions: 3 Allergy/AdvReac Type Severity Reaction Status Date / Time No Known Allergies Allergy Verified 03/18/18 20:04 Date of admission: 04/05/18 01:40 Primary care physician: PCP NONE - Constitutional Vitals: Temp Pulse Resp BP Pulse Ox 98.4 F 67 15 100/63 98 04/07/18 14:08 04/07/18 14:08 04/07/18 14:08 04/07/18 14:08 04/07/18 14:08 General appearance: Present: A&O X 3, pleasant, no acute distress Exam: Patient in no acute distress, talking and laughing with friend in room, eating food brought from home Alert and oriented x3 mucous membranes moist heart regular rate and rhythm without murmur, rub, or brennan Lungs clear to auscultation without adventitious sounds Abdomen soft and nontender, bowel sounds normal - Patient Status Disposition: Home, Self-Care Condition: Good Functional capacity at discharge: independent ambulation Overall status at discharge: patient is progressing back to baseline - Discharge Instructions Instructions: Urinary Tract Infection in Women (DC), Sepsis (DC) Follow Up With: Logan Chapman [Resident] - 04/13/18 1:15 pm Forms: Work/School Release - Diet and Activity Activity: increase activity as tolerated Diet: advance to your usual diet <Clint Falk - Last Filed: 04/07/18 22:08> Date of Encounter: 04/07/18 - Discharge Diagnosis (1) Pyelonephritis Status: Acute (2) Sepsis Status: Acute Qualifiers: Sepsis type: Escherichia coli Qualified Code(s): A41.51 - Sepsis due to Escherichia coli [E. coli] Hospital course: Ms. Miramontes is a 22 year old female - Time Spent with Patient Total time spent providing and/or coordinating discharge services: Date of admission: 04/05/18 01:40 Primary care physician: PCP NONE - Constitutional Vitals: Temp Pulse Resp BP Pulse Ox 98.4 F 67 15 100/63 98 04/07/18 14:08 04/07/18 14:08 04/07/18 14:08 04/07/18 14:08 04/07/18 14:08 - Attending Attestation I have examined the patient and reviewed the discharge summary obtained and documented by the resident and I personally participated in the stone components. and formulation of the plan of care. I have discussed the case and management of the patient's care. Acute pyelonephritis due to Ecoli- pansensitive Switch to Po Omnicef to completer 10 more days NSAIDS for pain control Keep up hydration needs outpatient PCP
== END 2018-04-07 18:01 | disposition home or self-care (01) ==
LOC: EMEROO 20:55 → INTOOBSV 04-05 01:40 → SUATTDRO 04-05 01:40 → 3ANU 04-05 01:40
PROVIDERS: ADMIT Internal Medicine; ATTEND Internal Medicine

== ENCOUNTER → 2019-09-16 19:45 | Observation (INO) ==
[2019-09-16 18:42] LABS: Bilirubin,Urine Negative (Negative); Blood,Urine Negative (Negative); Color,Urine Yellow (Yellow); Glucose,Urine (UA) Normal (Normal); Ketones,Urine Negative (Negative); Leukocyte Esterase,Urine Negative (Negative); Nitrite,Urine Negative (Negative); PH,Urine 6.5 pH Units (5.0-8.0); Protein,Urine Negative (Neg-Trace); Specific Gravity,Urine 1.023 (1.010-1.025); Urobilinogen,Urine Normal (Normal)
[2019-09-16 18:49] LABS: Clarity,Urine Clear (Clear)
[2019-09-16 18:58] LABS: Amphetamine Screen,Urine Negative ng/mL (Cutoff=1000); Barbiturate Screen,Urine Negative ng/mL (Cutoff=200); Benzodiazepines Screen,Urine Negative ng/mL (Cutoff=200); Cannabinoid Screen,Urine Negative ng/mL (Cutoff = 50); Cocaine Screen,Urine Negative ng/mL (Cutoff= 300); Opiate Screen,Urine Negative ng/mL (Cutoff=300); Phencyclidine Screen,Urine Negative ng/mL (Cutoff=25)
[~2019-09-16 19:45] MED LIST: Azithromycin 250 MG TABLET PO ONE
[2019-09-16 20:05] LABS: Gardnerella DNA Not Detected (Not Detect); Trichomonas DNA Not Detected (Not Detect)
[2019-09-16 20:06] LABS: Candida DNA Not Detected (Not Detect)
== END | disposition home or self-care (01) ==
LOC: 1NENULAB
PROVIDERS: ADMIT Advanced Practice Midwife; ATTEND Advanced Practice Midwife

== ENCOUNTER 2019-12-06 11:04 | Observation (INO) | END 2019-12-06 12:56 | disposition home or self-care (01) | LOC: 1NENULAB | PROVIDERS: ADMIT Advanced Practice Midwife; ATTEND Advanced Practice Midwife ==

== ENCOUNTER 2019-12-17 16:46 | Inpatient (IN) ==
[~2019-12-17 16:46] MED LIST changes: +*HR* FentaNYL (PF) 100 MCG/2 ML VIAL IVP PRN; -Azithromycin 250 MG TABLET PO ONE; +Famotidine 20 MG/2 ML VIAL IVP PRN; +Metoclopramide 10 MG/2 ML VIAL IVP PRN; +Naloxone 0.4 MG/ML INJ IVP PRN; +Ondansetron 4 MG/2 ML VIAL IVP PRN
[2019-12-17] MEDS: Ringers Solution, Lactated 1,000 ML IVC SCH ×2 (17:05→18:48)
[2019-12-17 17:11] LABS: Basophils % 0.3 %; Eosinophils # 0.1 K/mcL (0.0-0.6); Eosinophils % 1.4 %; Hematocrit 32.3 % (35.3-44.9); Hemoglobin 10.2 g/dL (11.5-15.4); Immature Granulocytes % 0.5 % (0-4); Lymphocytes # 1.5 K/mcL (0.6-4.6); Lymphocytes % 15.7 %; Mean Corpuscular HGB Conc 31.6 g/dL (31.6-35.5); Mean Corpuscular Hemoglobin 25.5 pg (28.0-33.3); Mean Corpuscular Volume 80.8 fL (83.0-100.0); Mean Platelet Volume 9.4 fL (9.4-12.4); Monocytes # 0.5 K/mcL (0.0-1.3); Monocytes % 5.6 %; Neutrophils # 7.3 K/mcL (1.6-8.9); Platelet Count 298 K/mcL (140-400); Red Cell Distribution Width 15.2 % (11.5-14.5); Segmented Neutrophils % 76.5 %; White Blood Count 9.5 K/mcL (4.3-11.1)
[2019-12-17] MEDS ORDERED: EPHEDrine 50 MG/ML VIAL IVP PRN (17:23)
[2019-12-17] MEDS ORDERED: *HR* FentaNYL (PF) 100 MCG/2 ML VIAL EP ONE (17:23)
[2019-12-17 17:24] LABS: Amphetamine Screen,Urine Negative ng/mL (Cutoff=1000); Barbiturate Screen,Urine Negative ng/mL (Cutoff=200); Benzodiazepines Screen,Urine Negative ng/mL (Cutoff=200); Cannabinoid Screen,Urine Negative ng/mL (Cutoff = 50); Cocaine Screen,Urine Negative ng/mL (Cutoff= 300); Opiate Screen,Urine Negative ng/mL (Cutoff=300); Phencyclidine Screen,Urine Negative ng/mL (Cutoff=25)
[2019-12-17] MEDS ORDERED: Epidural Premix (fent/bupiv) 110 ML EP SCH (17:30)
[2019-12-17] MEDS ORDERED: Epidural Premix (fent/bupiv) 110 ML EP ONE (17:30)
[2019-12-17] MEDS ORDERED: Oxytocin 20 units/ LR 1000 mL 20 UNIT/1,000 ML BAG IVC ONE (20:22)
[2019-12-17] MEDS ORDERED: Lidocaine 1% 20 ML MDV ONE (20:54)
[2019-12-17] MEDS ORDERED: Acetaminophen 325 MG TABLET PO PRN (23:38)
[2019-12-17] MEDS ORDERED: Oxytocin 20 units/ LR 1000 mL 20 UNIT/1,000 ML BAG IVC SCH (23:38)
[2019-12-17] MEDS ORDERED: Lanolin 7 G OINT...G. TP PRN (23:38)
[2019-12-17] MEDS ORDERED: Benzocaine/Menthol 56 GM AEROSOL SPRAY TP PRN (23:38)
[2019-12-18] MEDS: Ibuprofen 600 MG TABLET PO PRN ×3 (01:13→16:24)
[2019-12-18 06:45] LABS: Basophils % 0.4 %; Eosinophils # 0.2 K/mcL (0.0-0.6); Eosinophils % 1.9 %; Hematocrit 31.3 % (35.3-44.9); Hemoglobin 9.6 g/dL (11.5-15.4); Immature Granulocytes % 0.5 % (0-4); Lymphocytes # 1.6 K/mcL (0.6-4.6); Lymphocytes % 16.1 %; Mean Corpuscular HGB Conc 30.7 g/dL (31.6-35.5); Mean Corpuscular Hemoglobin 25.2 pg (28.0-33.3); Mean Corpuscular Volume 82.2 fL (83.0-100.0); Mean Platelet Volume 9.6 fL (9.4-12.4); Monocytes # 0.6 K/mcL (0.0-1.3); Monocytes % 5.9 %; Neutrophils # 7.6 K/mcL (1.6-8.9); Platelet Count 291 K/mcL (140-400); Red Blood Count 3.81 M/mcL (3.82-4.97); Red Cell Distribution Width 15.4 % (11.5-14.5); Segmented Neutrophils % 75.2 %
[2019-12-18] MEDS ORDERED: Prenatal Vit/FA 1 EACH TABLET PO SCH (09:00)
[2019-12-18 15:49] VITALS: BP 101/63
== END 2019-12-18 22:00 | disposition home or self-care (01) | DRG 560 ==
LOC: 1NENULAB → 1NENUOBS 23:37
PROVIDERS: ADMIT Advanced Practice Midwife; ATTEND Advanced Practice Midwife

== ENCOUNTER 2021-03-08 15:14 | Inpatient (IN) ==
[2021-03-08] MEDS ORDERED: Metoclopramide 10 MG/2 ML VIAL IVP PRN (15:21)
[2021-03-08] MEDS ORDERED: Famotidine 20 MG/2 ML VIAL IVP PRN (15:21)
[2021-03-08] MEDS ORDERED: *HR* Nalbuphine 10 MG/ML AMPUL IV PRN (15:21)
[2021-03-08] MEDS ORDERED: Ondansetron 4 MG/2 ML VIAL IVP PRN (15:21)
[2021-03-08] MEDS ORDERED: Naloxone 0.4 MG/ML INJ IVP PRN (15:21)
[2021-03-08] MEDS ORDERED: Ringers Solution, Lactated 1,000 ML IVC SCH (15:30)
[2021-03-08 16:20] LABS: Basophils % 0.5 %; Eosinophils # 0.1 K/mcL (0.0-0.6); Eosinophils % 0.9 %; Hematocrit 35.6 % (35.3-44.9); Hemoglobin 10.9 g/dL (11.5-15.4); Immature Granulocytes % 0.7 % (0-4); Lymphocytes # 1.6 K/mcL (0.6-4.6); Lymphocytes % 18.7 %; Mean Corpuscular HGB Conc 30.6 g/dL (31.6-35.5); Mean Corpuscular Hemoglobin 25.4 pg (28.0-33.3); Mean Platelet Volume 9.2 fL (9.4-12.4); Monocytes # 0.6 K/mcL (0.0-1.3); Monocytes % 7.2 %; Neutrophils # 6.1 K/mcL (1.6-8.9); Platelet Count 332 K/mcL (140-400); Red Blood Count 4.29 M/mcL (3.82-4.97); Red Cell Distribution Width 16.5 % (11.5-14.5); White Blood Count 8.5 K/mcL (4.3-11.1)
[2021-03-08 16:21] LABS: Amphetamine Screen,Urine Negative ng/mL (Cutoff=1000); Barbiturate Screen,Urine Negative ng/mL (Cutoff=200); Benzodiazepines Screen,Urine Negative ng/mL (Cutoff=200); Cannabinoid Screen,Urine Negative ng/mL (Cutoff = 50); Cocaine Screen,Urine Negative ng/mL (Cutoff= 300); Opiate Screen,Urine Negative ng/mL (Cutoff=300); Phencyclidine Screen,Urine Negative ng/mL (Cutoff=25)
[2021-03-08] MEDS ORDERED: EPHEDrine 50 MG/ML VIAL IVP PRN (17:14)
[2021-03-08] MEDS ORDERED: Epidural Premix (fent/bupiv) 110 ML EP SCH (17:15)
[2021-03-08] MEDS ORDERED: Oxytocin 20 units/ LR 1000 mL 20 UNIT/1,000 ML BAG IVC SCH ×2 (17:45→23:16)
[2021-03-08] MEDS ORDERED: *HR* FentaNYL (PF) 100 MCG/2 ML VIAL ONE (20:34)
[2021-03-08] MEDS ORDERED: Benzocaine/Menthol 56 GM AEROSOL SPRAY TP PRN (23:16)
[2021-03-08] MEDS ORDERED: Lanolin 7 G OINT...G. TP PRN (23:16)
[2021-03-09] MEDS: Ibuprofen 600 MG TABLET PO PRN ×3 (01:09→20:55)
[2021-03-09] MEDS: Acetaminophen 325 MG TABLET PO PRN ×2 (05:54→16:23)
[2021-03-09] MEDS ORDERED: Prenatal Vit/FA 1 EACH TABLET PO SCH (09:00)
[2021-03-09 15:23] VITALS: BP 106/65
== END 2021-03-09 22:00 | disposition home or self-care (01) | DRG 560 ==
LOC: 1NENULAB 15:14 → 1NENUOBS 23:51
PROVIDERS: ADMIT Registered Nurse; ATTEND Registered Nurse